=== PATIENT | female | born 1980 | race American Indian/Alaskan Native ===

== ENCOUNTER 2020-08-26 11:59 | Emergency (ER) | payer OTHER ==
[2020-08-26] MEDS ORDERED: LORazepam 1 MG TAB PO ONE (12:04)
[2020-08-26] MEDS ORDERED: ALPRAZolam 1 MG TAB PO ONE (12:06)
[2020-08-26 12:07] VITALS: BP 101/81
--- NOTE | 2020-08-26 12:10 | Event Note ---
ED Screening Note Date of service: 08/26/20 Time: 12:09 ED Screening Note: Patient complains of sudden onset of shortness of breath History of asthma Lungs are clear on exam Patient appears to be having panic attack-hyperventilating, heart rate 140 Denies history of anxiety or panic attacks States history of a episode similar to this 1 month ago that lasted for about an hour and resolved on its own Patient also has cramping and muscle spasms to her right hand This initial assessment/diagnostic orders/clinical plan/treatment(s) is/are subject to change based on patients health status, clinical progression and re- assessment by fellow clinical providers in the ED. Further treatment and workup at subsequent clinical providers discretion. Patient/guardian urged not to elope from the ED as their condition may be serious if not clinically assessed and managed. Initial orders include: Labs Xanax
[2020-08-26 12:19] LABS: Basophils # (Auto) 0.1 K/mm3 (0.0-0.1); Basophils % (Auto) 1.1 % (0.0-1.8); Eosinophils # (Auto) 0.1 K/mm3 (0.0-0.4); Eosinophils % (Auto) 0.6 % (0.0-4.3); Hematocrit 39.3 % (30.3-42.9); Lymphocytes # (Auto) 3.7 K/mm3 (1.2-5.4); Lymphocytes % (Auto) 42.2 % (13.4-35.0); Mean Corpuscular HGB Conc 33 % (30-34); Mean Corpuscular Volume 92 fl (79-97); Monocytes # (Auto) 0.7 K/mm3 (0.0-0.8); Monocytes % (Auto) 8.5 % (0.0-7.3); Platelet Count 267 K/mm3 (140-440); Red Blood Count 4.26 M/mm3 (3.65-5.03); Red Cell Distribution Width 14.3 % (13.2-15.2)
[2020-08-26 12:43] LABS: Alanine Aminotransferase 21 units/L (7-56); Albumin 4.8 g/dL (3.9-5); Blood Urea Nitrogen 6 mg/dL (7-17); Hemolysis Index 3
[2020-08-26] MEDS ORDERED: POTASSIUM CHLORIDE ER 20 MEQ TAB PO ONE (13:11)
--- NOTE | 2020-08-26 13:16 | Emergency Department Report ---
ED General Adult HPI - General Chief complaint: Anxiety Stated complaint: ASTHMA Time Seen by Provider: 08/26/20 12:04 Source: patient Mode of arrival: Wheelchair Limitations: No Limitations - History of Present Illness Initial comments: Patient complains of sudden onset of shortness of breath History of asthma Lungs are clear on exam Patient appears to be having panic attack-hyperventilating, heart rate 140 Correction to screening note, patient admits to history of anxiety and states she has been out of her Zoloft for 2 weeks Patient also has cramping and muscle spasms to her right hand -: Sudden - Related Data Previous Rx's Medication Instructions Recorded Last Taken Type LORazepam [Ativan] 0.5 mg PO QHS PRN #1 tab 08/26/20 Unknown Rx Potassium Chloride 10 meq PO QDAY #3 tab.er.prt 08/26/20 Unknown Rx Allergies Allergy/AdvReac Type Severity Reaction Status Date / Time No Known Allergies Allergy Verified 08/26/20 12:05 ED Review of Systems ROS: Stated complaint: ASTHMA Other details as noted in HPI Constitutional: denies: chills, diaphoresis, fever, malaise Respiratory: shortness of breath. denies: cough Cardiovascular: denies: chest pain, palpitations Gastrointestinal: denies: abdominal pain, nausea, vomiting Skin: denies: change in color Neurological: denies: headache ED Past Medical Hx - Past Medical History Additional medical history: anxiety - Surgical History Past Surgical History?: No - Social History Smoking Status: Current Every Day Smoker Substance Use Type: None - Medications Home Medications: Home Medications Medication Instructions Recorded Confirmed Last Taken Type LORazepam [Ativan] 0.5 mg PO QHS PRN #1 tab 08/26/20 Unknown Rx Potassium Chloride 10 meq PO QDAY #3 tab.er.prt 08/26/20 Unknown Rx ED Physical Exam - General Limitations: No Limitations General appearance: alert, anxious - Head Head exam: Present: atraumatic, normocephalic - Eye Eye exam: Present: normal appearance. Absent: scleral icterus - Neck Neck exam: Present: normal inspection - Respiratory Respiratory exam: Present: respiratory distress (Tachypnea). Absent: wheezes, rales, rhonchi, stridor, accessory muscle use - GI/Abdominal GI/Abdominal exam: Present: soft. Absent: tenderness - Extremities Exam Extremities exam: Present: full ROM - Back Exam Back exam: Present: normal inspection, full ROM - Neurological Exam Neurological exam: Present: alert, oriented X3, normal gait - Psychiatric Psychiatric exam: Present: normal affect, normal mood - Skin Skin exam: Present: warm, dry, intact, normal color. Absent: rash ED Course Vital Signs 08/26/20 12:01 Temperature 98.6 F Pulse Rate 100 H Respiratory 34 H Rate Blood Pressure 101/81 O2 Sat by Pulse 100 Oximetry ED Medical Decision Making - Lab Data Result diagrams: 08/26/20 12:10 08/26/20 12:10 Lab Results 08/26/20 08/26/20 08/26/20 Range/Units 12:10 12:10 12:10 WBC 8.7 (4.5-11.0) K/mm3 RBC 4.26 (3.65-5.03) M/mm3 Hgb 13.0 (10.1-14.3) gm/dl Hct 39.3 (30.3-42.9) % MCV 92 (79-97) fl MCH 31 (28-32) pg MCHC 33 (30-34) % RDW 14.3 (13.2-15.2) % Plt Count 267 (140-440) K/mm3 Lymph % (Auto) 42.2 H (13.4-35.0) % [place] % (Auto) 8.5 H (0.0-7.3) % Eos % (Auto) 0.6 (0.0-4.3) % Baso % (Auto) 1.1 (0.0-1.8) % Lymph # (Auto) 3.7 (1.2-5.4) K/mm3 [place] # (Auto) 0.7 (0.0-0.8) K/mm3 Eos # (Auto) 0.1 (0.0-0.4) K/mm3 Baso # (Auto) 0.1 (0.0-0.1) K/mm3 Seg Neutrophils % 47.6 (40.0-70.0) % Seg Neutrophils # 4.2 (1.8-7.7) K/mm3 Sodium 141 (137-145) mmol/L Potassium 3.1 L (3.6-5.0) mmol/L Chloride 99.2 (98-107) mmol/L Carbon Dioxide 19 L (22-30) mmol/L Anion Gap 53 mmol/L BUN 6 L (7-17) mg/dL Glucose 99 (65-100) mg/dL Calcium 9.0 (8.4-10.2) mg/dL Magnesium 1.80 (1.7-2.3) mg/dL Total Bilirubin 0.50 (0.1-1.2) mg/dL AST 28 (5-40) units/L ALT 21 (7-56) units/L Alkaline Phosphatase 55 (35-129) units/L Total Protein 7.7 (6.3-8.2) g/dL Albumin 4.8 (3.9-5) g/dL Albumin/Globulin Ratio 1.7 % HCG, Qual Negative (Negative) - Medical Decision Making Patient complains of sudden onset of shortness of breath History of asthma Lungs are clear on exam Patient appears to be having panic attack-hyperventilating, heart rate 140 Correction to screening note, patient admits to history of anxiety and states she has been out of her Zoloft for 2 weeks Patient also has cramping and muscle spasms to her right hand CBC is WNL. CMP shows mild hypokalemia with a potassium of 3.1. Patient given antianxiolytic medication. Her symptoms have completely resolved. Patient states she does have a refill of Zoloft waiting at the pharmacy and will restart her medication today. Recommend follow-up with PCP in 1 day. Prescription for potassium given. Strict return precautions discussed in detail with patient who verbalized understanding. Her vitals are normal, she is well-appearing, she is stable for discharge home. Critical care attestation.: If time is entered above; I have spent that time in minutes in the direct care of this critically ill patient, excluding procedure time. ED Disposition Clinical Impression: Panic attack, Hypokalemia Disposition: - TO HOME OR SELFCARE Is pt being admited?: No Condition: Stable Instructions: Hypokalemia, Panic Attack Prescriptions: LORazepam [Ativan] 0.5 mg PO QHS PRN #1 tab PRN Reason: panic attack Potassium Chloride 10 meq PO QDAY #3 tab.er.prt Referrals: PRIMARY CARE, [Referring] - 3-5 Days Forms: Work/School Release Form(ED)
[2020-08-26 13:19] LABS: BUN/Creatinine Ratio 9
== END 2020-08-26 13:30 | disposition home or self-care (01) ==
LOC: ED 11:59
DX: F41.0 Panic disorder [episodic paroxysmal anxiety] (principal); E87.6 Hypokalemia; F41.9 Anxiety disorder, unspecified; F17.200 Nicotine dependence, unspecified, uncomplicated; Z79.899 Other long term (current) drug therapy
CPT/HCPCS: 36415; 80053; 83735; 84703; 85025; 99283